=== PATIENT | female | born 1990 | race Caucasian/White ===

== ENCOUNTER 2023-10-25 09:30 | Outpatient (CLI) | payer OTHER ==
[2023-10-25 22:21] LABS: CHLAMYDIA TRACHOMATIS DNA NEGATIVE (NEGATIVE); NEISSERIA GONORRHOEAE DNA NEGATIVE (NEGATIVE); TRICHOMONAS VAGINALIS DNA NEGATIVE (NEGATIVE)
[2023-10-26 05:11] LABS: HCV AB Non Reactive (Non Reactive); HIV SCREEN 4TH GENERATION Non Reactive (Non Reactive)
[2023-10-26 07:09] LABS: HSV 1 IGG TYPE SPEC <0.91 index (0.00-0.90); HSV 2 IGG TYPE SPEC <0.91 index (0.00-0.90); RPR Non Reactive (Non Reactive)
== END 2023-10-25 09:45 | disposition home or self-care (01) ==
LOC: LAB.N 09:30
PROVIDERS: ATTEND Physician Assistant Medical
DX: Z11.3 Encounter for screening for infections with a predominantly sexual mode of transmission (principal)
CPT/HCPCS: 36415; 86592; 86695; 86696; 86803; 87389; 87491; 87591; 87661